=== PATIENT | female | born 2000 | race Caucasian/White ===

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

== ENCOUNTER → 2020-02-29 | Outpatient (CLI) | payer OTHER ==
[~2020-02-29] MED LIST changes: +PREN29TA4 PO
--- NOTE | 2020-03-15 08:00 | REP ---
COMPLETE OBSTETRICAL ULTRASOUND: 02/29/20 CLINICAL: Anatomical assessment. TECHNIQUE: Transabdominal obstetric ultrasound with color Doppler evaluation. FINDINGS: Ultrasound examination demonstrates a single live intrauterine in cephalic presentation. motion identified by technologist. The placenta noted anteriorly and grade 1 without evidence for placenta previa or abruption. Amniotic fluid volume is normal. The cervix measures 3.5cm in length and appears closed. Gestational age by LMP 18 weeks 5 days with estimated date of delivery 07/27/20. Gestational age by current measurements 19 weeks 1 day with estimated date of delivery 07/24/20. HEART RATE: 142bpm Estimated weight: 267g (62nd percentile) HC/AC Ratio 1.22 Anatomical assessment demonstrates normal cranium, choroid plexus, cerebellum, posterior fossa, ventricles, facial features, four chamber heart, diaphragm, stomach, three vessel cord/cord insertion, kidneys, bladder, spine and extremities. Limited evaluation of the cardiac ventricular outflow tracts noted. IMPRESSION: 1. Single live intrauterine demonstrating in cephalic presentation demonstrating appropriate estimated weight. 2. Limited evaluation of the cardiac ventricular outflow tracts. Remainder of the anatomical assessment is complete and normal. MTDD
== END ==
LOC: M WHC 14:58
PROVIDERS: ATTEND Specialist
DX: Z34.02 Encounter for supervision of normal first pregnancy, second trimester (principal); Z36.89 Encounter for other specified antenatal screening; Z3A.19 19 weeks gestation of pregnancy

== ENCOUNTER 2020-03-21 09:18 | Emergency (ER) | payer OTHER ==
[~2020-03-21] VITALS: Ht 170.2 cm; Wt 103.6 kg
[2020-03-21] MEDS ORDERED: NS 1,000 ML IV ONE (09:45)
[2020-03-21 10:06] LABS: BASO % 0.2 % (0.0-1.0); EOS # 0.1 10^3/uL (0.0-0.5); EOS % 0.6 % (0.0-3.0); HEMATOCRIT 36.7 % (36.0-47.0); HEMOGLOBIN 12.2 g/dl (12.0-15.5); LYMPH # 1.4 10^3/uL (1.5-5.0); LYMPH % 14.3 % (24.0-44.0); MEAN CORPUSCULAR HEMOGLOBIN 28.9 pg (27.0-33.0); MEAN CORPUSCULAR HGB CONC 33.2 g/dl (32.0-36.5); MONO # 0.7 10^3/uL (0.0-0.8); MONO % 6.9 % (0.0-5.0); NEUTROPHILS # 7.6 10^3/uL (1.5-8.5); NEUTROPHILS % 77.4 % (36.0-66.0); PLATELET COUNT, AUTOMATED 197 10^3/uL (150-450); RED BLOOD COUNT 4.22 10^6/uL (4.00-5.40); WHITE BLOOD COUNT 9.8 10^3/uL (4.0-10.0)
[2020-03-21 10:35] LABS: BLOOD UREA NITROGEN 8 MG/DL (7-18); CALCIUM LEVEL 8.5 MG/DL (8.5-10.1); CARBON DIOXIDE LEVEL 24 MEQ/L (21-32); CHLORIDE LEVEL 110 MEQ/L (98-107); CREATININE FOR GFR 0.45 MG/DL (0.55-1.30); GLUCOSE, FASTING 72 MG/DL (70-100); POTASSIUM SERUM 3.7 MEQ/L (3.5-5.1); SODIUM LEVEL 139 MEQ/L (136-145)
[2020-03-21 11:26] VITALS: BP 122/66
== END 2020-03-21 11:28 | disposition home or self-care (01) ==
LOC: M ED 09:18
DX: O99.612 Diseases of the digestive system complicating pregnancy, second trimester (principal); K92.0 Hematemesis; O99.342 Other mental disorders complicating pregnancy, second trimester; Z3A.21 21 weeks gestation of pregnancy; Z79.899 Other long term (current) drug therapy

== ENCOUNTER → 2020-03-28 | Outpatient (CLI) | payer OTHER ==
--- NOTE | 2020-04-02 11:59 | REP ---
FOLLOW-UP OBSTETRICAL ULTRASOUND CLINICAL: Anatomic reevaluation. COMPARISON: 02/29/2020. FINDINGS: Ultrasound examination demonstrates a single live intrauterine in transverse lie with head to maternal right. motion was identified by the technologist. Placenta noted anteriorly and grade 0 without placenta previa or abruption. Amniotic fluid is normal. Gestational age by last menstrual period (LMP) 22 weeks 5 days with estimated date of delivery 07/27/2020. Gestational age by current measures 22 weeks 5 days with estimated date of delivery 07/27/2020. heart rate (FHR) 163 beats per minute. Estimated weight 521 grams (48th percentile). Anatomical assessment demonstrates a normal four chamber heart and cardiac ventricular outflow tracts. IMPRESSION: Single live intrauterine in transverse lie demonstrating appropriate interval growth. In conjunction with prior examination, anatomical assessment is complete and normal. MTDD
== END ==
LOC: M WHC 14:24
PROVIDERS: ATTEND Specialist
DX: O32.2XX0 Maternal care for transverse and oblique lie, not applicable or unspecified (principal); Z36.89 Encounter for other specified antenatal screening; Z3A.22 22 weeks gestation of pregnancy

== ENCOUNTER → 2020-04-30 | Outpatient (REF) | payer OTHER ==
[2020-04-30 17:15] LABS: HEMOGLOBIN 11.9 g/dl (12.0-15.5); MEAN CORPUSCULAR HEMOGLOBIN 29.2 pg (27.0-33.0); MEAN CORPUSCULAR HGB CONC 32.2 g/dl (32.0-36.5); MEAN CORPUSCULAR VOLUME 90.9 fl (80.0-96.0); PLATELET COUNT, AUTOMATED 208 10^3/uL (150-450); RED BLOOD COUNT 4.07 10^6/uL (4.00-5.40); WHITE BLOOD COUNT 9.4 10^3/uL (4.0-10.0)
== END ==
LOC: M PLALAB 11:15
PROVIDERS: ATTEND Specialist
DX: Z34.02 Encounter for supervision of normal first pregnancy, second trimester (principal)

== ENCOUNTER → 2020-06-27 | Outpatient (REF) | payer OTHER ==
[~2020-06-27] MED LIST changes: +GABA-282 PO; -GABA-843 PO
== END ==
LOC: M SFHCWAGY 16:52
PROVIDERS: ATTEND Specialist
DX: Z34.03 Encounter for supervision of normal first pregnancy, third trimester (principal)

== ENCOUNTER 2020-07-14 19:25 | Outpatient (CLI) | payer OTHER ==
[~2020-07-14] VITALS: Ht 172.7 cm; Wt 114.5 kg
[2020-07-14 19:48] VITALS: BP 133/72
[2020-07-14 20:40] VITALS: BP 114/68
--- NOTE | 2020-07-14 22:04 | IPNPDOC ---
Obstetrical Progress Note Date of Service Jul 14, 2020 Subjective 20 yo at 38 1/7 weeks gestation presents with lower abdominal cramping for several hours. No vaginal bleeding. Good movement. Objective Vital Signs Date Time Temp Pulse Resp B/P (MAP) Pulse Ox O2 Delivery O2 Flow Rate FiO2 07/14/20 20:40 75 20 114/68 (83) 07/14/20 19:48 97.6 Assessment Variability: Moderate Accelerations: Positive Decelerations: None Heart Rate Tracing: Category I Tocometer Contractions: Yes Frequency: irregular Duration: less than 60 seconds Strength: palpated as mild Sterile Vaginal Examination Dilation: 1cm Effacement (%): 50% Station: -2 Cervical Consistency: Medium Cervical Position: Posterior Postion/Presentation: Cephalic presentation Assessment and Plan Status: Reassuring Additional Comments 20 yo G1 at 38 1/7 weeks gestation presents with contactions, not in labor Discharge home labor precautions fu office as scheduled RENAE LANGE MD Jul 14, 2020 22:04
== END 2020-07-14 22:10 | disposition home or self-care (01) ==
LOC: M LDO 19:25
PROVIDERS: ATTEND Obstetrics & Gynecology
DX: O47.1 False labor at or after 37 completed weeks of gestation (principal); Z3A.38 38 weeks gestation of pregnancy

== ENCOUNTER 2020-07-20 15:23 | Outpatient (CLI) | payer OTHER ==
[~2020-07-20] VITALS: Ht 171.4 cm; Wt 113.0 kg
[~2020-07-20 15:23] MED LIST changes: -QUET1TAB7 PO; +QUET25TA3 PO
[2020-07-20 15:52] VITALS: BP 123/82
[2020-07-20 16:36] VITALS: BP 132/84
[2020-07-20 16:59] VITALS: BP 134/82
[2020-07-20 18:05] VITALS: BP 118/82
[2020-07-20 18:51] VITALS: BP 121/56
--- NOTE | 2020-07-20 18:57 | IPNPDOC ---
Text Note Date of Service The patient was seen on 07/20/20. NOTE Outpatient 20yo MONIAC 07/27/2020. Presents @ 39wks with complaints of back pain, wetness and bleeding. Denies recent IC. Reports good movement. Spec exam Neg pool, light bloody show, neg valsalva, neg fern No UC noted on monitor over a few hours. Cat I tracing. SVE unchanged /3, scant bloody show Reviewed possible early labor. Enc to hydrate, rest. JACQUELINE, movement patterns, warnings reviewed Is scheduled for IOL Thursday. Protocol reviewed. Discharged home with instructions VS,Fishbone, I+O VS, Fishbone, I+O Vital Signs Date Time Temp Pulse Resp B/P (MAP) Pulse Ox O2 Delivery O2 Flow Rate FiO2 07/20/20 18:05 100 18 118/82 (94) 07/20/20 15:52 98.1 97 Room Air Love Good CNM Jul 20, 2020 18:57
== END 2020-07-20 19:02 | disposition home or self-care (01) ==
LOC: M LDO 15:23
PROVIDERS: ATTEND Advanced Practice Midwife
DX: O26.893 Other specified pregnancy related conditions, third trimester (principal); Z3A.39 39 weeks gestation of pregnancy

== ENCOUNTER → 2020-10-19 | Outpatient (CLI) | payer MEDICAID | LOC: M OUTALCOH 07:50 | PROVIDERS: ATTEND Psychiatry & Neurology Psychiatry | DX: F19.90 Other psychoactive substance use, unspecified, uncomplicated (principal) ==

== ENCOUNTER 2020-11-02 11:00 | Outpatient (RCR) | payer MEDICAID | END 2020-11-12 | LOC: M OUTALCOH 11:00 | PROVIDERS: ATTEND Psychiatry & Neurology Psychiatry | DX: F17.200 Nicotine dependence, unspecified, uncomplicated (principal); Z03.89 Encounter for observation for other suspected diseases and conditions ruled out ==

== ENCOUNTER → 2021-08-19 | Outpatient (CLI) | payer OTHER ==
[~2021-08-19] MED LIST changes: +QUET1TAB17 PO; -QUET25TA3 PO; +TIZA10TA PO; -TIZA4TAB4 PO
== END ==
LOC: M PLALAB 15:37
PROVIDERS: ATTEND Obstetrics & Gynecology
DX: Z12.4 Encounter for screening for malignant neoplasm of cervix (principal)

== ENCOUNTER → 2021-08-22 | Outpatient (CLI) | payer OTHER | LOC: M PLALAB 15:04 | PROVIDERS: ATTEND Obstetrics & Gynecology | DX: O36.80X0 Pregnancy with inconclusive fetal viability, not applicable or unspecified (principal); Z3A.00 Weeks of gestation of pregnancy not specified ==

== ENCOUNTER → 2021-08-23 | Outpatient (CLI) | payer OTHER | LOC: M PLALAB 15:06 | PROVIDERS: ATTEND Obstetrics & Gynecology | DX: O36.80X0 Pregnancy with inconclusive fetal viability, not applicable or unspecified (principal) ==

== ENCOUNTER → 2021-08-28 | Outpatient (CLI) | payer OTHER | LOC: M PLALAB 08:17 | PROVIDERS: ATTEND Obstetrics & Gynecology | DX: O36.80X0 Pregnancy with inconclusive fetal viability, not applicable or unspecified (principal); Z3A.00 Weeks of gestation of pregnancy not specified ==

== ENCOUNTER → 2021-12-04 | Outpatient (CLI) | payer OTHER | LOC: M WHC 08:57 | PROVIDERS: ATTEND Specialist | DX: Z34.82 Encounter for supervision of other normal pregnancy, second trimester (principal); Z3A.19 19 weeks gestation of pregnancy ==

== ENCOUNTER → 2021-12-30 | Outpatient (CLI) | payer OTHER | LOC: M WHC 08:59 | PROVIDERS: ATTEND Specialist | DX: Z36.2 Encounter for other antenatal screening follow-up (principal); Z3A.23 23 weeks gestation of pregnancy ==

== ENCOUNTER → 2022-01-01 | Outpatient (REF) | payer OTHER | LOC: M PLALAB 14:14 | PROVIDERS: ATTEND Advanced Practice Midwife | DX: Z53.9 Procedure and treatment not carried out, unspecified reason (principal) ==

== ENCOUNTER → 2022-01-06 | Outpatient (REF) | payer OTHER | LOC: M PLALAB 11:44 | PROVIDERS: ATTEND Advanced Practice Midwife | DX: Z34.92 Encounter for supervision of normal pregnancy, unspecified, second trimester (principal); Z3A.00 Weeks of gestation of pregnancy not specified ==

== ENCOUNTER → 2022-01-13 | Outpatient (CLI) | payer OTHER | LOC: M WHC 07:29 | PROVIDERS: ATTEND Advanced Practice Midwife | DX: Z34.92 Encounter for supervision of normal pregnancy, unspecified, second trimester (principal) ==

== ENCOUNTER → 2022-01-24 | Outpatient (CLI) | payer OTHER ==
[2022-01-24 13:50] LABS: HEMATOCRIT 37.9 % (36.0-47.0); HEMOGLOBIN 12.3 g/dl (12.0-15.5); MEAN CORPUSCULAR HEMOGLOBIN 28.9 pg (27.0-33.0); MEAN CORPUSCULAR HGB CONC 32.5 g/dl (32.0-36.5); PLATELET COUNT, AUTOMATED 218 10^3/uL (150-450); RED BLOOD COUNT 4.26 10^6/uL (4.00-5.40); WHITE BLOOD COUNT 10.9 10^3/uL (4.0-10.0)
== END ==
LOC: M PLALAB 09:50
PROVIDERS: ATTEND Advanced Practice Midwife
DX: Z34.92 Encounter for supervision of normal pregnancy, unspecified, second trimester (principal); Z3A.00 Weeks of gestation of pregnancy not specified

== ENCOUNTER → 2022-03-12 | Outpatient (CLI) | payer OTHER | LOC: M WHC 10:32 | PROVIDERS: ATTEND Obstetrics & Gynecology | DX: O26.843 Uterine size-date discrepancy, third trimester (principal); Z3A.33 33 weeks gestation of pregnancy ==

== ENCOUNTER → 2022-03-27 | Outpatient (CLI) | payer OTHER | LOC: M WHC 10:25 | PROVIDERS: ATTEND Obstetrics & Gynecology | DX: Z36.2 Encounter for other antenatal screening follow-up (principal); Z87.59 Personal history of other complications of pregnancy, childbirth and the puerperium; Z3A.36 36 weeks gestation of pregnancy ==

== ENCOUNTER → 2022-04-01 | Outpatient (REF) | payer OTHER | LOC: M PLALAB 10:11 | PROVIDERS: ATTEND Obstetrics & Gynecology | DX: Z36.85 Encounter for antenatal screening for Streptococcus B (principal) ==

== ENCOUNTER 2022-04-30 07:27 | Inpatient (IN) | payer OTHER ==
[~2022-04-30] VITALS: Ht 172.7 cm; Wt 125.2 kg
[2022-04-30] VITALS (28 sets, daily range): BP systolic 104–200; BP diastolic 54–143
[2022-04-30] MEDS ORDERED: OMEP10CASR PO (08:37)
[2022-04-30] MEDS ORDERED: HOME MED LIST COMPLETE! XX SCH (08:40)
[2022-04-30 09:11] LABS: HEMOGLOBIN 11.2 g/dl (12.0-15.5); MEAN CORPUSCULAR HEMOGLOBIN 27.6 pg (27.0-33.0); MEAN CORPUSCULAR VOLUME 86.2 fl (80.0-96.0); PLATELET COUNT, AUTOMATED 193 10^3/uL (150-450); RED BLOOD COUNT 4.06 10^6/uL (4.00-5.40); WHITE BLOOD COUNT 9.8 10^3/uL (4.0-10.0)
[2022-04-30 11:03] LABS: HEPATITIS C VIRUS ABY INDEX 0.1 INDEX (<0.8)
[2022-04-30] MEDS ORDERED: OXYTOCIN DRIP 30 UNITS in IV 1 EA IV PRN (12:05)
[2022-04-30] MEDS ORDERED: METHYLERGONOVINE MALEATE 0.2 MG/ML VIAL (J2210) IM PRN (12:05)
[2022-04-30] MEDS ORDERED: OXYTOCIN DRIP 30 UNITS in IV 1 EA IV SCH (12:05)
[2022-04-30] MEDS ORDERED: LACTATED RINGER'S 1000 ML IV STA (12:05)
[2022-04-30] MEDS ORDERED: OXYTOCIN INJ 10 UNITS/ML VIAL (J2590) IM PRN (12:05)
[2022-04-30] MEDS ORDERED: LIDOCAINE 1% MDV 20ML VIAL INFIL PRN (12:05)
[2022-04-30] MEDS ORDERED: CARBOPROST TROMETHAMINE 250 MCG/ML AMP IM PRN (12:05)
[2022-04-30] MEDS ORDERED: TRANEXAMIC ACID INJection 1,000 MG in NS 100 ML IV PRN (12:05)
[2022-04-30] MEDS ORDERED: LR 1,000 ML IV SCH (12:05)
[2022-04-30 12:23] LABS: GC DNA AMPLIFICATION NEGATIVE (NEGATIVE)
[2022-04-30 13:52] LABS: HIV 1&2 SCREEN CENTAUR NEGATIVE (NEGATIVE)
[2022-04-30] MEDS ORDERED: diphenhydrAMINE 50MG/ML VIAL IV PRN (14:40)
[2022-04-30] MEDS ORDERED: NALOXONE INJ 0.4MG/1ML VIAL (J2310 PER 1MG) IV PRN (14:40)
[2022-04-30] MEDS ORDERED: ePHEDrine SULFATE 25 MG/5 ML(5MG/ML) SYRINGE IVP PRN (14:40)
[2022-04-30] MEDS ORDERED: LR 500 ML IV PRN (14:40)
[2022-04-30] MEDS ORDERED: ONDANSETRON 4MG 2ML VIAL IV PRN (14:40)
[2022-04-30] MEDS ORDERED: FENTANYL/ROPIVACAINE/NACL BAG 100 ML EPIDURAL SCH ×2 (14:40)
[2022-04-30] MEDS ORDERED: EPIDURAL/PCA KEYS XX PRN (14:40)
[2022-04-30] MEDS ORDERED: MOM 30ML SUSPENSION UDC PO PRN (18:25)
[2022-04-30] MEDS ORDERED: IBUPROFEN 600MG TAB PO PRN (18:25)
[2022-04-30] MEDS ORDERED: RHOGAM 300 MCG (1500 IU) INJ (J2790) IM SCH (18:25)
[2022-04-30] MEDS ORDERED: DOCUSATE SODIUM 100MG CAPSULE PO PRN (18:25)
[2022-04-30] MEDS ORDERED: ACETAMINOPHEN 500 MG TAB PO PRN (18:25)
[2022-04-30] MEDS ORDERED: IBUPROFEN 800 MG TAB PO PRN (18:25)
[2022-04-30] MEDS ORDERED: ACETAMINOPHEN TAB 650MG DOSE (2X325MG) PO PRN (18:25)
[2022-04-30] MEDS ORDERED: DIBUCAINE 1% OINTMENT 30GM TOP PRN (18:25)
[2022-05-01 06:00] VITALS: BP_SYST 133; BP_SYST 138; BP_DIAS 78; BP_DIAS 86
[2022-05-01] MEDS: PRENATAL VITAMINS CHEWABLE TABLET PO SCH (09:00)
[2022-05-01 18:00] VITALS: BP 134/77
[2022-05-02 06:00] VITALS: BP 145/95
[2022-05-02] MEDS: PRENATAL VITAMINS CHEWABLE TABLET PO SCH (08:31)
[2022-05-02] MEDS ORDERED: MEASLES,MUMPS,RUBELLA VACCINE INJ (MMR-II) (90707) SC.IMMUN ONE (09:00)
== END 2022-05-02 15:14 | disposition home or self-care (01) | DRG 560 ==
LOC: M LDI 07:27 → M OBS 19:50
PROVIDERS: ADMIT Advanced Practice Midwife; ATTEND Advanced Practice Midwife
PROC: 10E0XZZ Delivery of Products of Conception, External Approach (ICD-10-PCS; principal; 2022-04-30)
PROC: 3E033VJ Introduction of Other Hormone into Peripheral Vein, Percutaneous Approach (ICD-10-PCS; 2022-04-30)
DX: O48.0 Post-term pregnancy (principal); O77.0 Labor and delivery complicated by meconium in amniotic fluid; Z37.0 Single live birth; Z88.8 Allergy status to other drugs, medicaments and biological substances; O76 Abnormality in fetal heart rate and rhythm complicating labor and delivery

== ENCOUNTER → 2022-08-06 | Outpatient (CLI) | payer OTHER, MEDICAID ==
[~2022-08-06] MED LIST changes: +OMEP10CASR PO
== END ==
LOC: M LABSMTC 09:41
PROVIDERS: ATTEND Anesthesiology
DX: Z01.812 Encounter for preprocedural laboratory examination (principal); Z20.822 Contact with and (suspected) exposure to COVID-19

== ENCOUNTER 2022-08-11 11:18 | Day surgery (SDC) | payer OTHER, MEDICAID ==
[~2022-08-11] VITALS: Ht 172.7 cm; Wt 120.4 kg
[2022-08-11] MEDS ORDERED: LR 1,000 ML IV SCH ×3 (11:50→15:35)
[2022-08-11 11:59] LABS: HEMATOCRIT 39.3 % (36.0-47.0); HEMOGLOBIN 12.6 g/dl (12.0-15.5); MEAN CORPUSCULAR HGB CONC 32.1 g/dl (32.0-36.5); MEAN CORPUSCULAR VOLUME 87.3 fl (80.0-96.0); PLATELET COUNT, AUTOMATED 247 10^3/uL (150-450); WHITE BLOOD COUNT 5.6 10^3/uL (4.0-10.0)
[2022-08-11] MEDS ORDERED: OXYC1TAB23 PO (13:27)
[2022-08-11] MEDS ORDERED: IBUP-1022 PO (13:27)
[2022-08-11] MEDS ORDERED: propofoL 200 MG/20 ML VIAL As Ordered ONE (13:35)
[2022-08-11] MEDS ORDERED: ONDANSETRON 4MG 2ML VIAL As Ordered ONE (13:36)
[2022-08-11] MEDS ORDERED: SUGAMMADEX SODIUM 500 MG/5 ML VIAL (BRIDION) As Ordered ONE (13:36)
[2022-08-11] MEDS ORDERED: LIDOCAINE 2% 100MG/5ML SDV (FOR ANES.) As Ordered ONE (13:36)
[2022-08-11] MEDS ORDERED: ROCURONIUM BROMIDE 50MG/5ML VIAL As Ordered ONE (13:36)
[2022-08-11] MEDS ORDERED: KETOROLAC 60MG 2ML VIAL As Ordered ONE ×2 (13:36→13:47)
[2022-08-11] MEDS ORDERED: MIDAZOLAM INJ 2MG/2ML VIAL As Ordered ONE (13:41)
[2022-08-11] MEDS ORDERED: fentaNYL 100 MCG/2 ML INJECTION As Ordered ONE (13:41)
[2022-08-11] MEDS ORDERED: BUPIVACAINE HCL 0.25% 10ML VIAL As Ordered ONE (14:11)
[2022-08-11] MEDS ORDERED: ACETAMINOPHEN 1000MG 100ML IV BAG As Ordered ONE (14:28)
[2022-08-11] MEDS ORDERED: oxyCODONE 5MG TAB PO PRN (15:10)
[2022-08-11] MEDS ORDERED: HYDROMORPHONE HCL 0.5 MG/ 0.5 ML SYRINGE IV PRN (15:10)
[2022-08-11] MEDS ORDERED: fentaNYL 100 MCG/2 ML INJECTION IV PRN (15:10)
[2022-08-11] MEDS ORDERED: ONDANSETRON 4MG 2ML VIAL IV PRN (15:10)
[2022-08-11] MEDS ORDERED: METOCLOPRAMIDE INJ 10MG/2ML VIAL IV PRN (15:10)
[2022-08-11] MEDS ORDERED: PERCOCET 5MG/325MG TAB PO PRN (15:35)
[2022-08-11 16:10] VITALS: BP 125/72
== END 2022-08-11 16:18 | disposition home or self-care (01) ==
LOC: M SDC 11:18
PROVIDERS: ATTEND Specialist
DX: Z30.2 Encounter for sterilization (principal); F41.9 Anxiety disorder, unspecified; F32.A Depression, unspecified; F17.210 Nicotine dependence, cigarettes, uncomplicated; E66.01 Morbid (severe) obesity due to excess calories; Z88.8 Allergy status to other drugs, medicaments and biological substances
CPT/HCPCS: 36415; 58661; 81025; 85027; 88302; J0131; J1885; J2250; J2405; J3010; S0020

== ENCOUNTER → 2023-05-13 | Outpatient (CLI) | payer OTHER ==
[~2023-05-13] MED LIST changes: +OXYC1TAB23 PO
[2023-05-13 14:15] LABS: BASO % 0.3 % (0.0-1.0); EOS % 0.6 % (0.0-3.0); HEMATOCRIT 43.8 % (36.0-47.0); HEMOGLOBIN 14.3 g/dl (12.0-15.5); LYMPH # 1.7 10^3/uL (1.5-5.0); LYMPH % 25.6 % (24.0-44.0); MEAN CORPUSCULAR HEMOGLOBIN 27.9 pg (27.0-33.0); MEAN CORPUSCULAR HGB CONC 32.6 g/dl (32.0-36.5); MEAN CORPUSCULAR VOLUME 85.5 fl (80.0-96.0); MONO # 0.6 10^3/uL (0.0-0.8); NEUTROPHILS # 4.3 10^3/uL (1.5-8.5); NEUTROPHILS % 64.4 % (36.0-66.0); PLATELET COUNT, AUTOMATED 248 10^3/uL (150-450); RED BLOOD COUNT 5.12 10^6/uL (4.00-5.40); WHITE BLOOD COUNT 6.7 10^3/uL (4.0-10.0)
[2023-05-13 14:17] LABS: FREE T4 1.26 NG/DL (0.89-1.76)
[2023-05-13 14:18] LABS: FERRITIN 27.6 NG/ML (7.3-270.7); THYROID STIMULATING HORMONE 2.719 uIU/ML (0.55-4.78)
[2023-05-13 14:19] LABS: IRON (FE) 114 UG/DL (50-170)
[2023-05-13 14:20] LABS: PERCENT SATURATION 31.8 % (13.2-45.0); TOTAL IRON BINDING CAPACITY 359 UG/DL (250-425)
[2023-05-13 14:27] LABS: ALKALINE PHOSPHATASE 84 U/L (46-116); ALT/SGPT 74 U/L (7.0-40); AST/SGOT 28 U/L (<34); BILIRUBIN,TOTAL 0.6 MG/DL (0.3-1.2); BLOOD UREA NITROGEN 14 MG/DL (9-23); CALCIUM LEVEL 9.1 MG/DL (8.5-10.1); CARBON DIOXIDE LEVEL 26 MMOL/L (20-31); CHLORIDE LEVEL 106 MMOL/L (98-107); CREATININE FOR GFR 0.77 MG/DL (0.55-1.30); GLOMERULAR FILTRATION RATE > 60.0 (>60); GLUCOSE, FASTING 89 MG/DL (60-100); POTASSIUM SERUM 4.1 MMOL/L (3.5-5.1); SODIUM LEVEL 140 MMOL/L (136-145); TOTAL PROTEIN 7.3 G/DL (5.7-8.2)
[2023-05-13 14:49] LABS: HEMOGLOBIN A1c 4.7 % (4.0-6.0)
== END ==
LOC: M PLALAB 10:59
PROVIDERS: ATTEND Nurse Practitioner Family
DX: N92.0 Excessive and frequent menstruation with regular cycle (principal)
CPT/HCPCS: 36415; 80053; 82728; 83036; 83550; 84439; 84443; 85025; 85246; G0463

== ENCOUNTER 2025-03-08 06:05 | Observation (INO) | payer OTHER ==
[2025-03-07 14:20] VITALS: BP 139/99; TEMP 97.3; O2SAT 100
[~2025-03-08] VITALS: Ht 172.7 cm; Wt 98.9 kg
[~2025-03-08 06:05] MED LIST changes: +GABA-1172 PO; -GABA-282 PO; -IBUP-1022 PO; +IBUP600T42 PO
[2025-03-08] MEDS ORDERED: LR 1,000 ML IV SCH (06:35)
[2025-03-08] MEDS ORDERED: LIDOCAINE 1% SDV 5 ML VIAL SC PRN (06:35)
[2025-03-08 07:25] LABS: HCG, SERUM QUALITATIVE NEGATIVE (NEGATIVE)
[2025-03-08] MEDS ORDERED: dexmedeTOMIDine (4 MCG/ML) 200 MCG/50 ML BTL As Ordered ONE (07:30)
[2025-03-08] MEDS ORDERED: MIDAZOLAM INJ 2 MG/2 ML VIAL As Ordered ONE (07:30)
[2025-03-08] MEDS ORDERED: LIDOCAINE 2% 100 MG/5 ML SDV (FOR ANES.) As Ordered ONE (07:41)
[2025-03-08] MEDS ORDERED: dexAMETHasone 4 MG/ML 1 ML VIAL As Ordered ONE (07:41)
[2025-03-08] MEDS ORDERED: ONDANSETRON 4MG 2ML VIAL As Ordered ONE (07:41)
[2025-03-08] MEDS ORDERED: ROCURONIUM BROMIDE 50MG/5ML VIAL As Ordered ONE (07:41)
[2025-03-08] MEDS ORDERED: SEVOFLURANE INHAL SOLN 250 ML BTL As Ordered ONE (07:53)
[2025-03-08] MEDS: HEPARIN SOD 5000 UNITS/ML 1 ML VIAL/SYRINGE SQ ONE (08:15)
[2025-03-08] MEDS: ceFAZolin SOD 2 GM IV ONCE IV ONE (08:15)
[2025-03-08] MEDS ORDERED: ACETAMINOPHEN 1000MG/100ML IV BAG As Ordered ONE (08:22)
[2025-03-08] MEDS ORDERED: LACRILUBE (AKWA TEARS) OPHTH OINT 3.5 GM As Ordered ONE (08:22)
[2025-03-08] MEDS ORDERED: PHENYLephrine 500MCG 5ML (100MCG/ML) SYRINGE As Ordered ONE (08:23)
[2025-03-08] MEDS: GENTAMICIN SULF 80 MG/2 ML VIAL As Ordered ONE (08:39)
[2025-03-08] MEDS ORDERED: SUGAMMADEX SODIUM 200 MG/2 ML VIAL As Ordered ONE (09:02)
[2025-03-08] MEDS ORDERED: HYDROmorphone HCL 2 MG/ML 1 ML VIAL As Ordered ONE (09:02)
[2025-03-08] MEDS ORDERED: HYDROMORPHONE HCL 0.5 MG/0.5 ML SYRINGE IV PRN (12:00)
[2025-03-08] MEDS: LR 1,000 ML IV SCH ×2 (12:00→15:06)
[2025-03-08] MEDS: ONDANSETRON 4MG 2ML VIAL IV PRN ×2 (13:24→16:39)
[2025-03-08 14:50] VITALS: BP 149/83; TEMP 97.5; O2SAT 97
[2025-03-08] MEDS ORDERED: HOME MED LIST COMPLETE! XX SCH (14:55)
[2025-03-08] MEDS: PERCOCET 5MG/325MG TAB PO PRN (15:06)
[2025-03-08 15:20] VITALS: BP 136/85; TEMP 97.2; O2SAT 97
[2025-03-08] MEDS ORDERED: LABETALOL 100 MG/20 ML VIAL As Ordered ONE (15:24)
[2025-03-08 16:19] VITALS: BP 134/85; TEMP 97.4; O2SAT 99
[2025-03-08] MEDS: ONDANSETRON 4MG 2ML VIAL IV ONE (17:33)
[2025-03-08 18:00] VITALS: BP 116/66; TEMP 96.8; O2SAT 97
[2025-03-08] MEDS: ACETAMINOPHEN 325 MG TAB PO PRN (20:51)
[2025-03-08] MEDS: ceFAZolin SODIUM 2 GM in DEXTROSE 5% (D5W) ADV/MINI-BAG 50 ML IV SCH (20:51)
[2025-03-08 21:00] VITALS: BP 142/67; TEMP 97.8; O2SAT 100
[2025-03-09 01:00] VITALS: BP 112/65; TEMP 97.3; O2SAT 99
[2025-03-09 06:00] VITALS: BP 116/68; TEMP 97.9; O2SAT 98
[2025-03-09] MEDS ORDERED: TRAM50TA2 PO (09:46)
[2025-03-09] MEDS: traMADol 50 MG TAB PO PRN (09:51)
== END 2025-03-09 11:48 | disposition home or self-care (01) ==
LOC: M SDC 06:05 → M PSY 06:06 → M RR INP 06:07 → M PED 14:12
PROVIDERS: ADMIT Plastic Surgery Surgery of the Hand; ATTEND Plastic Surgery Surgery of the Hand
DX: N62 Hypertrophy of breast (principal); Z88.0 Allergy status to penicillin
CPT/HCPCS: 19318; 36415; 84703; 88305; 96361; 96365; 96366; 96375; 96376; J0131; J0665; J0666; J0688; J1100; J1171; J1580; J1920; J2250; J2371; J2405; J2550; J3010